=== PATIENT | female | born 1995 | race Caucasian/White ===

== ENCOUNTER 2017-03-21 11:09 | Emergency (ER) | payer OTHER ==
[~2017-03-21] VITALS: Ht 160 cm; Wt 74.1 kg
[2017-03-21 11:11] VITALS: Ht 160 cm; Wt 74.1 kg
[2017-03-21 13:03] LABS: ADD UMIC NO; URINE BILIRUBIN (Dip) NEGATIVE (NEGATIVE); URINE BLOOD (Dip) NEGATIVE (NEGATIVE); URINE COLOR LT. YELLOW (YELLOW); URINE GLUCOSE (Dip) NEGATIVE (NEGATIVE); URINE KETONES (Dip) NEGATIVE (NEGATIVE); URINE LEUKOCYTE ESTERASE (Dip) NEGATIVE (NEGATIVE); URINE NITRITE (Dip) NEGATIVE (NEGATIVE); URINE TOTAL PROTEIN (Dip) NEGATIVE (NEGATIVE); URINE UROBILINOGEN (Dip) 0.2 E.U./dL (0.1-1.0)
[2017-03-21 13:03] LABS: ADD SCAN DIFF NO
[2017-03-21 13:04] LABS: BASOPHILS % 0.3 % (0.0-2.0); EOSINOPHILS # 0.2 10^3/ul (0.0-0.5); EOSINOPHILS % 3.4 % (0.0-7.0); HEMOGLOBIN 11.4 g/dl (12.0-16.0); LYMPHOCYTES # 2.3 10^3/ul (0.8-2.9); LYMPHOCYTES % 32.4 % (15.0-51.0); MEAN CORPUSCULAR HEMOGLOBIN 25.9 pg (29.0-33.0); MEAN CORPUSCULAR HGB CONC 30.8 g/dl (32.0-37.0); MEAN CORPUSCULAR VOLUME 84.1 fl (82.0-101.0); MEAN PLATELET VOLUME 10.3 fl (7.4-10.4); MONOCYTE # 0.4 10^3/ul (0.3-0.9); MONOCYTES % 5.6 % (0.0-11.0); NEUTROPHIL # 4.2 10^3/ul (1.6-7.5); NEUTROPHILS % 58.2 % (39.0-77.0); PLATELET COUNT 313 10^3/UL (140-415); RED CELL DISTRIBUTION WIDTH 13.8 % (11.5-14.5); WHITE BLOOD COUNT 7.1 10^3/ul (4.8-10.8)
[2017-03-21 13:13] LABS: ALBUMIN 4.5 g/dl (3.3-4.9); POTASSIUM 3.7 mmol/L (3.5-5.1)
[2017-03-21 13:15] LABS: CREATININE 0.68 mg/dl (0.44-1.00)
[2017-03-21 13:16] LABS: ALBUMIN/GLOBULIN RATIO 1.18; BILIRUBIN,INDIRECT 0.2 mg/dl (0-1.1); BILIRUBIN,TOTAL 0.2 mg/dl (0.2-1.3); CALCIUM 9.3 mg/dl (8.4-10.2); TOTAL PROTEIN 8.3 g/dl (6.1-8.1)
--- NOTE | 2017-03-21 13:20 | ERD ---
ER Documentation Chief Complaint Date/Time DATE: 03/21/17 Chief Complaint Right upper quadrant abdominal pain HPI The patient is a 21-year-old female who presents to the Emergency Department with complaint of intermittent right upper quadrant abdominal pain for one week. The patient reports that she has been experiencing her "gallstone pain" with increasing frequency over the past week. The pain is localized to the right upper quadrant of her abdomen and radiates to the back. It is aching in nature, and intermittent, often provoked by eating large, heavy meals. In the past, she would take the previously prescribed medications (Tramadol, Ibuprofen and Pepcid) with complete relief of pain. However, she notes that she ran out of her medications approximately 10 days ago, and therefore has not had any medication for relief of her pain. She notes 0/10 pain at this time, with 10/ 10 pain at maximum intensity. Her pain last occurred last night, and therefore she tried to make an appointment with her primary medical provider today, though no appointments were available. Therefore, she presents today. She denies any nausea, vomiting, diarrhea, dysuria, hematuria, flank pain, urinary frequency, urinary urgency, vaginal bleeding or new vaginal discharge. Last menstrual period was 02/08/2017. ROS All systems reviewed and are negative except as per history of present illness. Medications Home Meds Active Scripts Docusate Sodium* (Colace*) 100 Mg Capsule, 100 MG PO TID, #30 CAP Prov:CHLOE MCCLELLAND PA-C 03/21/17 Famotidine* (Pepcid*) 20 Mg Tablet, 20 MG PO BID, #20 TAB Prov:CHLOE MCCLELLAND PA-C 03/21/17 Ibuprofen* (Motrin*) 600 Mg Tab, 600 MG PO Q6, #30 TAB Prov:CHLOE MCCLELLAND PA-C 03/21/17 Tramadol HCl (Tramadol HCl) 50 Mg Tablet, 50 MG PO Q6 Y for PAIN, #15 TAB Prov:CHLOE MCCLELLAND PA-C 03/21/17 Allergies Allergies: Coded Allergies: No Known Allergy (Unverified , 03/21/17) PMhx/Soc Medical and Surgical Hx: pt denies Medical Hx, pt denies Surgical Hx Hx Alcohol Use: No Hx Substance Use: No Hx Tobacco Use: No Physical Exam Vitals Vital Signs Date Time Temp Pulse Resp B/P Pulse Ox O2 Delivery O2 Flow Rate FiO2 03/21/17 11:11 98.0 60 18 124/60 97 Physical Exam GENERAL: Well-developed, well-nourished, female, in no acute distress HEENT: Head is normocephalic, atraumatic. No scleral pallor or icterus. Pupils equal, round and reactive to light. Extraocular movements intact. Conjunctiva pink. Moist mucous membranes. NECK: Supple. No masses, no tenderness, no lymphadenopathy. Trachea midline. RESPIRATORY: Lungs are clear to auscultation bilaterally. Equal breath sounds. Normal expiratory effort. CARDIOVASCULAR: Regular rate and rhythm. S1 and S2 normal. No murmurs, rubs, or gallops. Distal pulses are palpable, 2+ bilaterally. Capillary refill is less than 2 seconds. GASTROINTESTINAL: Abdomen is soft, nontender and nondistended. Negative Pinzon' s sign. No tenderness at McBurney's point. No guarding, no rebound tenderness. Normal bowel sounds. No gross peritonitis. FLANK: No CVA tenderness. EXTREMITIES: No clubbing, cyanosis, or edema. Normal skin perfusion. Moving all extremities. Muscle tone is normal. No focal swelling or erythema. NEUROLOGIC: The patient is alert, awake, and oriented x 3. No focal neurologic deficits. INTEGUMENT: Skin is intact. Warm and dry. PSYCHIATRIC: Cooperative; appropriate. Result Diagram: 03/21/17 1250 03/21/17 1250 Results 24 hrs Laboratory Tests Test 03/21/17 12:40 03/21/17 12:50 Urine Color LT. YELLOW Urine Clarity CLEAR Urine pH 6.0 Urine Specific [place] 1.025 Urine Ketones NEGATIVE Urine Nitrite NEGATIVE Urine Bilirubin NEGATIVE Urine Urobilinogen 0.2 E.U./dL Urine Leukocyte Esterase NEGATIVE Urine Hemoglobin NEGATIVE Urine Glucose NEGATIVE% Urine Total Protein NEGATIVE White Blood Count 7.110^3/ul Red Blood Count 4.4010^6/ul Hemoglobin 11.4g/dl Hematocrit 37.0% Mean Corpuscular Volume 84.1fl Mean Corpuscular Hemoglobin 25.9pg Mean Corpuscular Hemoglobin Concent 30.8g/dl Red Cell Distribution Width 13.8% Platelet Count 93428^3/UL Mean Platelet Volume 10.3fl Neutrophils % 58.2% Lymphocytes % 32.4% Monocytes % 5.6% Eosinophils % 3.4% Basophils % 0.3% Nucleated Red Blood Cells % 0.0/100WBC Neutrophils # 4.210^3/ul Lymphocytes # 2.310^3/ul Monocytes # 0.410^3/ul Eosinophils # 0.210^3/ul Basophils # 0.010^3/ul Nucleated Red Blood Cells # 0.010^3/ul Sodium Level 143mmol/L Potassium Level 3.7mmol/L Chloride Level 105mmol/L Carbon Dioxide Level 26mmol/L Anion Gap 16 Blood Urea Nitrogen 11mg/dl Creatinine 0.68mg/dl Glucose Level 113mg/dl Calcium Level 9.3mg/dl Total Bilirubin 0.2mg/dl Direct Bilirubin 0.00mg/dl Indirect Bilirubin 0.2mg/dl Aspartate Amino Transf (AST/SGOT) 28IU/L Alanine Aminotransferase (ALT/SGPT) 34IU/L Alkaline Phosphatase 87IU/L Total Protein 8.3g/dl Albumin 4.5g/dl Globulin 3.80g/dl Albumin/Globulin Ratio 1.18 Lipase 137U/L Procedures/MDM Diagnostic Tests and Interpretation: PROCEDURE: Right Upper Quadrant Ultrasound. CLINICAL INDICATION: Abdominal Pain TECHNIQUE: Multiple real-time images were acquired of the patient's right upper quadrant abdomen and retroperitoneum utilizing a high resolution transducer. COMPARISON: None FINDINGS: The liver measures 14.1 cm, and demonstrates moderately increased echogenicity. The main portal vein is patent with proper directional flow. There is no intrahepatic biliary ductal dilatation. The extrahepatic common bile duct measures 3 mm. There is cholelithiasis. There is mild nonspecific gallbladder wall thickening to 4 mm which may at least in part be due to underdistension. There is no pericholecystic fluid. The visualized pancreas is unremarkable. The right kidney measures 9.7 x 4.1 x 5.4 cm and demonstrates normal echotexture. There is no right renal calculus or hydronephrosis. The visualized abdominal aorta and IVC are grossly unremarkable. IMPRESSION: Moderate fatty infiltration of the liver. There is cholelithiasis. There is mild nonspecific gallbladder wall thickening which may at least in part be due to underdistension without pericholecystic fluid. Acute cholecystitis is considered unlikely although clinical correlation is recommended. Normal CBD. Physician Fernanda Date Time Electronically viewed and signed by José Miguel Stinson Physician on 03/21/2017 13:41 Imaging findings discussed with Dr. Maritnez, who recommends that the patient be discharged home, as she is experiencing no current pain at this time, negative Pinzon's sign, no leukocytosis, normal bilirubin, and no transaminitis. Medical Decision Making: This is a 21-year-old female presenting to the Emergency Department with complaint of right upper quadrant abdominal pain. On physical examination, the patient's abdomen was soft throughout, with no tenderness to palpation, no distention, no guarding, no gross peritonitis. Differential diagnosis includes, but is not limited to, gastroenteritis, gastritis, cholecystitis, cholangitis, choledocholithiasis, pancreatitis, perforated viscus, mesenteric ischemia, GERD, PUD, urinary tract infection, acute coronary syndrome, peptic ulcer disease, pyelonephritis, pneumonia, hepatitis, infectious diarrhea, IBD, aortic dissection, torsion, bowel obstruction, appendicitis, diverticulitis. Laboratory analysis with no leukocytosis. No elevated bilirubin or transaminitis. Lipase is normal. Urinalysis with no nitrites, no urine leukocyte esterace, no evidence for urinary tract infection. Ultrasound of the right upper quadrant revealed cholelithiasis with nonspecific gallbladder wall thickening. However, no pericholecystic fluid noted, no additional findings to suggest acute cholecystitis. Otherwise, no evidence of acute cholangitis, choledocholithiasis or gallstone pancreatitis. After rest, the patient reports no new complaints and no pain. Upon review and interpretation of the patient's presentation and overall ER course, I believe the patient's symptoms are most consistent with right upper quadrant abdominal pain, likely secondary to biliary colic/cholelithiasis without cholecystitis. Doubt acute coronary syndrome - symptoms and examination inconsistent. Doubt pancreatitis - clinical presentation inconsistent, lipase normal. Doubt perforated ulcer, patient has a non-surgical abdomen. Doubt small bowel obstruction, patient is passing flatus, abdomen is non-distended. Doubt appendicitis, patient has no McBurney's point tenderness, no guarding, non- surgical abdomen, no tenderness over the RLQ. Doubt diverticulitis, exam inconsistent. Doubt ischemic bowel, no pain out of proportion to examination. Doubt torsion, symptoms and examination inconsistent. At this time, the patient is in stable condition and therefore can be discharged home with prescriptions for Ibuprofen, Pepcid (per patient's request) , Tramadol and Colace, and strict return precautions for signs of deteriorating or worsening condition. She is advised to follow up with her primary care provider in 2-3 days for reevaluation and further management, or return to the ER sooner if symptoms worsen. I shared my medical decision making, plan, as well as the results with the patient at length and in great detail, and she verbally understands and agrees with the plan for further observation and care as an outpatient. At the time of discharge, all questions were answered. Departure Diagnosis: Primary Impression: Biliary colic Additional Impressions: Cholelithiasis without cholecystitis Right upper quadrant abdominal pain Condition: Stable Patient Instructions: Biliary Colic With Gallstone (Confirmed), Coping with Colic, Gallstones Additional Instructions: Call your primary care doctor TOMORROW for an appointment during the next 2-3 days.See the doctor sooner or return here if your condition worsens before your appointment time. CHLOE MCCLELLAND PA-C Mar 21, 2017 13:20
--- NOTE | 2017-03-21 13:42 | RADRPT ---
PROCEDURE: Right Upper Quadrant Ultrasound. CLINICAL INDICATION: Abdominal Pain TECHNIQUE: Multiple real-time images were acquired of the patient's right upper quadrant abdomen a nd retroperitoneum utilizing a high resolution transducer. COMPARISON: None FINDINGS: The liver measures 14.1 cm, and demonstrates moderately increased echogenicity. The main portal vein is patent with proper directional flow. There is no intrahepatic biliary ductal dilatation. The ext rahepatic common bile duct measures 3 mm. There is cholelithiasis. There is mild nonspecific gallbladder wall thickening to 4 mm which may at least in part be due to underdistension. There is no pericholecystic fluid. The visualized pancreas is unremarkable. The right kidney measures 9.7 x 4.1 x 5.4 cm and demonstrates normal echotexture. There is no right renal calculus or hydronephrosis. The visualized abdominal aorta and IVC are grossly unremarkable. IMPRESSION: Moderate fatty infiltration of the liver. There is cholelithiasis. There is mild nonspecific gallbladder wall thickening which may at least i n part be due to underdistension without pericholecystic fluid. Acute cholecystitis is considered u nlikely although clinical correlation is recommended. Normal CBD. RPTAT: EE Physician Fernanda Date Time Electronically viewed and signed by Physician Fernanda on 03/21/2017 13:41 /
[2017-03-21] MEDS ORDERED: IBUP-1542 PO (13:46)
[2017-03-21] MEDS ORDERED: TRAM50TA2 PO (13:46)
[2017-03-21] MEDS ORDERED: FAMO-18 PO (13:47)
[2017-03-21] MEDS ORDERED: DOCU-144 PO (13:48)
== END 2017-03-21 14:02 | disposition home or self-care (01) ==
LOC: FTE 11:09
DX: K80.70 Calculus of gallbladder and bile duct without cholecystitis without obstruction (principal)
CPT/HCPCS: 36415; 76705; 80053; 81003; 83690; 85025; Z7502

== ENCOUNTER 2017-10-20 03:49 | Emergency (ER) | payer OTHER ==
[~2017-10-20] VITALS: Ht 160 cm; Wt 75.6 kg
[~2017-10-20 03:49] MED LIST: DOCU-144 PO; FAMO-96 PO; IBUP-1542 PO; TRAM50TA2 PO
[2017-10-20 04:04] VITALS: Ht 160 cm; Wt 75.6 kg
[2017-10-20] MEDS ORDERED: KETOROLAC 30 MG INJ IV STA (04:27)
[2017-10-20] MEDS ORDERED: ONDANSETRON 4 MG INJ IV STA (04:27)
[2017-10-20 05:09] LABS: BASOPHILS % 0.2 % (0.0-2.0); EOSINOPHILS # 0.1 10^3/ul (0.0-0.5); EOSINOPHILS % 0.5 % (0.0-7.0); HEMATOCRIT 37.1 % (37.0-47.0); HEMOGLOBIN 11.6 g/dl (12.0-16.0); LYMPHOCYTES # 1.2 10^3/ul (0.8-2.9); LYMPHOCYTES % 13.3 % (15.0-51.0); MEAN CORPUSCULAR HEMOGLOBIN 25.9 pg (29.0-33.0); MEAN CORPUSCULAR HGB CONC 31.3 g/dl (32.0-37.0); MEAN CORPUSCULAR VOLUME 82.8 fl (82.0-101.0); MEAN PLATELET VOLUME 10.5 fl (7.4-10.4); MONOCYTE # 0.4 10^3/ul (0.3-0.9); MONOCYTES % 3.8 % (0.0-11.0); NEUTROPHIL # 7.6 10^3/ul (1.6-7.5); PLATELET COUNT 288 10^3/UL (140-415); RED BLOOD COUNT 4.48 10^6/ul (4.20-5.40); RED CELL DISTRIBUTION WIDTH 13.5 % (11.5-14.5); WHITE BLOOD COUNT 9.3 10^3/ul (4.8-10.8)
[2017-10-20 05:32] LABS: ALBUMIN 4.3 g/dl (3.3-4.9); ALBUMIN/GLOBULIN RATIO 1.19; BILIRUBIN,INDIRECT 0.1 mg/dl (0-1.1); BILIRUBIN,TOTAL 0.1 mg/dl (0.2-1.3); CALCIUM 9.1 mg/dl (8.4-10.2); CREATININE 0.78 mg/dl (0.44-1.00); POTASSIUM 3.9 mmol/L (3.5-5.1); TOTAL PROTEIN 7.9 g/dl (6.1-8.1)
--- NOTE | 2017-10-20 05:50 | RADRPT ---
PROCEDURE: CT Abdomen and pelvis without contrast. CLINICAL INDICATION: Abdominal pain. TECHNIQUE: CT scan of the abdomen and pelvis was performed on a multi-detector high-resolution CT scanner. Contiguous axial images were obtained from the lung bases to the ischial tuberosities wit hout intravenous contrast. Coronal and sagittal reformatted images were also obtained. Images were reviewed on the PACS workstation. DICOM images are available. One or more of the following dose reduction techniques were used: - Automated exposure control. - Adjustment of the mA and/or kV according to patient size. - Use of iterative reconstruction technique. Exam CTD/vol = 12.35 mGy. Total exam DLP = 701.75 mGy-cm. COMPARISON: None. FINDINGS: Evaluation of the lung bases demonstrates no pleural or parenchymal disease. Abdomen: The liver is normal in size. There is no focal mass or dilatation of the biliary tree. T he gallbladder is not distended. Multiple radiolucent gallstones are present. There is mild gallblad linwood wall thickening. The spleen, pancreas and bilateral adrenal glands are within normal limits. Bi lateral kidneys are normal in size with no contour deforming mass identified. There is mild right re nal cortical scarring. There is no radiopaque renal or ureteral calculus identified. There is no h ydronephrosis or hydroureter. There is no retroperitoneal adenopathy. The abdominal aorta is of no rmal caliber. There is no abnormal bowel wall thickening or distension. There is no bowel obstruction or free air . A normal appendix is identified. There is no diverticulosis or diverticulitis. There is no asci rosi. Pelvis: The bladder demonstrates mild wall thickening. The uterus and adnexa are within normal kurtz its. There is mild pelvic free fluid. There is no significant pelvic adenopathy. Evaluation of the osseous structures demonstrates no suspicious lytic or blastic lesion. IMPRESSION: Cholelithiasis with mild gallbladder wall thickening. Mild bladder wall thickening could suggest cystitis. Clinical correlation is needed. Mild pelvic free fluid. Mild right renal cortical scarring. Normal appendix. .Khalif Angulo MD, Date Time Electronically viewed and signed by .Khalif Angulo MD, MD on 10/20/2017 05:50 .T/
--- NOTE | 2017-10-20 05:52 | RADRPT ---
PROCEDURE: Abdominal ultrasound, limited. CLINICAL INDICATION: Abdominal pain. TECHNIQUE: Multiple real-time images were acquired of the patient's right upper abdomen utilizing a high resolution transducer. COMPARISON: 03/21/2017. FINDINGS: The liver demonstrates increased echogenicity and size measuring 16.9 cm. There is no focal mass or intrahepatic biliary ductal dilatation. The portal vein is patent. The gallbladder is not distend ed. Multiple echogenic gallstones are identified. There is focal tenderness over the gallbladder. T here is no pericholecystic fluid. There is mild gallbladder wall thickening measuring 3.5 mm. The c ommon bile duct measures 2.5 mm in maximal dimension. The pancreas is obscured by overlying bowel g as. No free fluid is identified. The right kidney is normal size and echogenicity measuring 10.1 cm. There is no focal renal mass or echogenic calculus identified. There is no obstructive uropathy. IMPRESSION: Cholelithiasis with mild gallbladder wall thickening and positive sonographic Pinzon's sign. Fatty infiltration of the liver. Pancreas obscured by overlying bowel gas. .Khalif Angulo MD, MD Date Time Electronically viewed and signed by .Khalif Angulo MD, MD on 10/20/2017 05:51 .T/
[2017-10-20] MEDS ORDERED: IBUP-1542 PO (06:03)
[2017-10-20 06:05] LABS: ADD UMIC YES; UR ASCORBIC ACID NEGATIVE (NEGATIVE); UR BACTERIA MODERATE /HPF (NONE SEEN); UR BILIRUBIN (Dip) NEGATIVE (NEGATIVE); UR BLOOD (Dip) 1+ mg/dL (NEGATIVE); UR CLARITY CLOUDY (CLEAR); UR COLOR YELLOW (YELLOW); UR GLUCOSE (Dip) NEGATIVE (NEGATIVE); UR KETONES (Dip) NEGATIVE (NEGATIVE); UR LEUKOCYTE ESTERASE (Dip) 1+ Leu/ul (NEGATIVE); UR MUCUS MODERATE /HPF (NONE SEEN); UR NITRITE (Dip) NEGATIVE (NEGATIVE); UR RBC 35 /HPF (0-5); UR SPECIFIC GRAVITY (Dip) 1.019 (1.003-1.030); UR SQUAMOUS EPITHELIAL CELL FEW /HPF (FEW); UR TOTAL PROTEIN (Dip) 1+ mg/dl (NEGATIVE); UR UROBILINOGEN (Dip) NEGATIVE (NEGATIVE)
[2017-10-20] MEDS ORDERED: NITR-58 PO (06:11)
[2017-10-20] MEDS ORDERED: ONDA4TAB14 PO (06:12)
[2017-10-20] MEDS ORDERED: HYDR-906 PO (06:12)
--- NOTE | 2017-10-20 06:27 | ERD ---
ER Documentation Chief Complaint Chief Complaint RUQ w/suprapubic pressure just now HPI Patient is a 22-year-old female with a past medical history of cholelithiasis who presents to the ED for concerns of right-sided flank pain radiating up into her right upper quadrant as well as suprapubic tenderness and dysuria. Patient states her symptoms started 2 hours prior to her arrival. She states she has "gallbladder pain". Patient states that the pain is constant, throbbing in nature. Patient denies any fevers or chills. Patient minutes to nausea and vomiting 3, nonbloody nonbilious. Also admits to dysuria. She denies any hematuria. Patien denies any diarrhea, chest pain, shortness of breath, or extremity pain or loss consciousness. Patient denies any previous abdominal surgeries. ROS All systems reviewed and are negative except as per history of present illness. Medications Home Meds Active Scripts Ondansetron (Ondansetron Odt) 4 Mg Tab.rapdis, 4 MG PO Q6H Y for NAUSEA AND/OR VOMITING, #10 TAB Prov:MARILEE DEL REAL PA-C 10/20/17 Hydrocodone/Acetaminophen ([place] 5-325 Tablet) 1 Each Tablet, 1 TAB PO Q6H Y for PAIN, #7 TAB Prov:MARILEE DEL REAL PA-C 10/20/17 Nitrofurantoin Monohyd Macrocr* (Macrobid*) 100 Mg Capsr, 100 MG PO BID for 5 Days, CAP Prov:MARILEE DEL REAL PA-C 10/20/17 Ibuprofen* (Motrin*) 600 Mg Tab, 600 MG PO Q6, #30 TAB Prov:MARILEE DEL REAL PA-C 10/20/17 Docusate Sodium* (Colace*) 100 Mg Capsule, 100 MG PO TID, #30 CAP Prov:CHLOE MCCLELLAND PA-C 03/21/17 Famotidine* (Pepcid*) 20 Mg Tablet, 20 MG PO BID, #20 TAB Prov:CHLOE MCCLELLAND PA-C 03/21/17 Ibuprofen* (Motrin*) 600 Mg Tab, 600 MG PO Q6, #30 TAB Prov:CHLOE MCCLELLAND PA-C 03/21/17 Tramadol HCl (Tramadol HCl) 50 Mg Tablet, 50 MG PO Q6 Y for PAIN, #15 TAB Prov:CHLOE MCCLELLAND PA-C 03/21/17 Allergies Allergies: Coded Allergies: No Known Allergy (Unverified , 03/21/17) PMhx/Soc Medical and Surgical Hx: pt denies Surgical Hx Hx Miscellaneous Medical Probl: Yes (UTI) Hx Alcohol Use: No Hx Substance Use: No Hx Tobacco Use: No Smoking Status: Never smoker Physical Exam Vitals Vital Signs Date Time Temp Pulse Resp B/P Pulse Ox O2 Delivery O2 Flow Rate FiO2 10/20/17 04:04 98.6 60 18 130/64 98 Physical Exam GENERAL: Well-developed, well-nourished female. Appears in no acute distress. HEAD: Normocephalic, atraumatic. EYES: Pupils are equally reactive bilaterally. EOMs grossly intact. No conjunctival erythema. ENT: Moist mucous membranes. No uvula deviation. No kissing tonsils. NECK: Supple. No meningismus. Normal range of motion of the neck. LUNG: Clear to auscultation bilaterally. No rhonchi, wheezing, rales or coarse breath sounds. HEART: Regular rate and rhythm. No murmurs, rubs or gallops. ABDOMEN: Soft, and nondistended. Tender to palpation in the right upper quadrant. Positive Pinzon sign. Positive bowel sounds in all four quadrants. No rebound tenderness, no guarding. (-) McBurney's point tenderness. No CVA tenderness. EXTREMITIES: Equal pulses bilaterally. No peripheral clubbing, cyanosis or edema. No unilateral leg swelling. NEUROLOGIC: Alert and oriented. Moving all four extremities without any difficulty. Normal speech. Steady gait. SKIN: Normal color. Warm and dry. No rashes or lesions. Result Diagram: 10/20/170 10/20/17 0450 Results 24 hrs Laboratory Tests Test 10/20/17 04:50 White Blood Count 9.310^3/ul Red Blood Count 4.4810^6/ul Hemoglobin 11.6g/dl Hematocrit 37.1% Mean Corpuscular Volume 82.8fl Mean Corpuscular Hemoglobin 25.9pg Mean Corpuscular Hemoglobin Concent 31.3g/dl Red Cell Distribution Width 13.5% Platelet Count 15598^3/UL Mean Platelet Volume 10.5fl Neutrophils % 82.0% Lymphocytes % 13.3% Monocytes % 3.8% Eosinophils % 0.5% Basophils % 0.2% Nucleated Red Blood Cells % 0.0/100WBC Neutrophils # 7.610^3/ul Lymphocytes # 1.210^3/ul Monocytes # 0.410^3/ul Eosinophils # 0.110^3/ul Basophils # 0.010^3/ul Nucleated Red Blood Cells # 0.010^3/ul Urine Color YELLOW Urine Clarity CLOUDY Urine pH 7.0 Urine Specific [place] 1.019 Urine Ketones NEGATIVEmg/dL Urine Nitrite NEGATIVEmg/dL Urine Bilirubin NEGATIVEmg/dL Urine Urobilinogen NEGATIVEmg/dL Urine Leukocyte Esterase 1+Khushi/ul Urine Microscopic RBC 35/HPF Urine Microscopic WBC 97/HPF Urine Squamous Epithelial Cells FEW/HPF Urine Bacteria MODERATE/HPF Urine Mucus MODERATE/HPF Urine Hemoglobin 1+mg/dL Urine Glucose NEGATIVEmg/dL Urine Total Protein 1+mg/dl Sodium Level 143mmol/L Potassium Level 3.9mmol/L Chloride Level 104mmol/L Carbon Dioxide Level 27mmol/L Anion Gap 16 Blood Urea Nitrogen 11mg/dl Creatinine 0.78mg/dl Glucose Level 139mg/dl Calcium Level 9.1mg/dl Total Bilirubin 0.1mg/dl Direct Bilirubin 0.00mg/dl Indirect Bilirubin 0.1mg/dl Aspartate Amino Transf (AST/SGOT) 20IU/L Alanine Aminotransferase (ALT/SGPT) 34IU/L Alkaline Phosphatase 109IU/L Total Protein 7.9g/dl Albumin 4.3g/dl Globulin 3.60g/dl Albumin/Globulin Ratio 1.19 Lipase 151U/L Current Medications Medications (Trade) Dose Ordered Sig/Almaz Route PRN Reason Start Time Stop Time Status Last Admin Dose Admin Ondansetron HCl (Zofran Inj) 4 mg ONCE STAT IV 10/20/17 04:27 10/20/17 04:28 DC 10/20/17 04:56 Ketorolac Tromethamine (Toradol) 30 mg ONCE STAT IV 10/20/17 04:27 10/20/17 04:28 DC 10/20/17 04:56 Procedures/MDM ED COURSE: The patient was stable throughout ED course. I kept the patient and/or family informed of laboratory and diagnostic imaging results throughout the ED course. DIAGNOSTIC IMAGING: Read by radiologist. Patient: ADONAY SCHAEFER : 1995 Age: 22 Sex: F MR #: [id number] DOS: 10/20/17426 Ordering MD: MARILEE DEL REAL PA-C Location: [facility] Room/Bed: PROCEDURE: Abdominal ultrasound, limited. CLINICAL INDICATION: Abdominal pain. TECHNIQUE: Multiple real-time images were acquired of the patient's right upper abdomen utilizing a high resolution transducer. COMPARISON: 03/21/2017. FINDINGS: The liver demonstrates increased echogenicity and size measuring 16.9 cm. There is no focal mass or intrahepatic biliary ductal dilatation. The portal vein is patent. The gallbladder is not distended. Multiple echogenic gallstones are identified. There is focal tenderness over the gallbladder. There is no pericholecystic fluid. There is mild gallbladder wall thickening measuring 3.5 mm. The common bile duct measures 2.5 mm in maximal dimension. The pancreas is obscured by overlying bowel gas. No free fluid is identified. The right kidney is normal size and echogenicity measuring 10.1 cm. There is no focal renal mass or echogenic calculus identified. There is no obstructive uropathy. IMPRESSION: Cholelithiasis with mild gallbladder wall thickening and positive sonographic Pinzon's sign. Fatty infiltration of the liver. Pancreas obscured by overlying bowel gas. .Khalif Angulo MD, MD Date Time Electronically viewed and signed by .Khalif Angulo MD, MD on 10/20/2017 05:51 .T/ CC: MARILEE DEL REAL PA-C Patient: ADONAY SCHAEFER : 1995 Age: 22 Sex: F MR #: [id number] DOS: 10/20/17426 Ordering MD: MARILEE DEL REAL PA-C Location: [facility] Room/Bed: PROCEDURE: CT Abdomen and pelvis without contrast. CLINICAL INDICATION: Abdominal pain. TECHNIQUE: CT scan of the abdomen and pelvis was performed on a multi- detector high-resolution CT scanner. Contiguous axial images were obtained from the lung bases to the ischial tuberosities without intravenous contrast. Coronal and sagittal reformatted images were also obtained. Images were reviewed on the PACS workstation. DICOM images are available. One or more of the following dose reduction techniques were used: - Automated exposure control. - Adjustment of the mA and/or kV according to patient size. - Use of iterative reconstruction technique. Exam CTD/vol = 12.35 mGy. Total exam DLP = 701.75 mGy-cm. COMPARISON: None. FINDINGS: Evaluation of the lung bases demonstrates no pleural or parenchymal disease. Abdomen: The liver is normal in size. There is no focal mass or dilatation of the biliary tree. The gallbladder is not distended. Multiple radiolucent gallstones are present. There is mild gallbladder wall thickening. The spleen, pancreas and bilateral adrenal glands are within normal limits. Bilateral kidneys are normal in size with no contour deforming mass identified. There is mild right renal cortical scarring. There is no radiopaque renal or ureteral calculus identified. There is no hydronephrosis or hydroureter. There is no retroperitoneal adenopathy. The abdominal aorta is of normal caliber. There is no abnormal bowel wall thickening or distension. There is no bowel obstruction or free air. A normal appendix is identified. There is no diverticulosis or diverticulitis. There is no ascites. Pelvis: The bladder demonstrates mild wall thickening. The uterus and adnexa are within normal limits. There is mild pelvic free fluid. There is no significant pelvic adenopathy. Evaluation of the osseous structures demonstrates no suspicious lytic or blastic lesion. IMPRESSION: Cholelithiasis with mild gallbladder wall thickening. Mild bladder wall thickening could suggest cystitis. Clinical correlation is needed. Mild pelvic free fluid. Mild right renal cortical scarring. Normal appendix. .Khalif Angulo MD, MD Date Time Electronically viewed and signed by .Khalif Angulo MD, MD on 10/20/2017 05:50 .T/ CC: MARILEE DEL REAL PA-C PROCEDURES: None. MEDICATIONS GIVEN: Toradol, Zofran Patient tolerated medication well with no adverse reactions. MEDICAL DECISION MAKING: This is a 22-year-old female who presents to the ED for concerns of right upper quadrant pain 2 hours. Patient denies any fevers or chills. Patient did admit to nausea and vomiting. Vital signs were reviewed. Patient is afebrile. CBC showed no evidence of systemic infection or severe anemia. CMP showed no evidence of electrolyte abnormalities, severe acidosis, alkalosis, renal failure , or liver disease. Lipase showed no evidence of acute pancreatitis. UA did show 1+ leukocyte esterase, positive WBCs and positive RBCs. Urine test was negative. CT abdomen and pelvis showed Cholelithiasis with mild gallbladder wall thickening. Mild bladder wall thickening could suggest cystitis. Clinical correlation is needed. Mild pelvic free fluid. Mild right renal cortical scarring. Normal appendix. Gallbladder ultrasound showed Cholelithiasis with mild gallbladder wall thickening and positive sonographic Pinzon's sign. Fatty infiltration of the liver. Pancreas obscured by overlying bowel gas. I discussed this case with my supervising physician Dr. Olguin, who also examined the patient reviewed all her laboratory studies and imaging studies. At this time, he does not feel that patient requires admission for emergent cholecystectomy or antibiotics. Patient was advised that she will need to have her gallbladder taken out on an outpatient basis. Referral information was provided. At this time, patient's presentation is most consistent with cholelithiasis with gallbladder wall thickening and UTI vs early pyelonephritis. Low suspicion for appendicitis, bowel obstruction, bowel perforation, DKA, bowel perforation, acute cholecystitis, choledocholithiasis, pancreatitis, diverticulitis, pyelonephritis, nephrolithiasis. PRESCRIPTIONS: Ibuprofen, [place], Macrobid, Zofran DISCHARGE: At this time, patient is stable for discharge and outpatient management. Patient was given a copy of all imaging studies and blood work obtained today. Patient advised to follow-up with the surgeon on an outpatient basis. Referral information provided. I have instructed the patient to follow-up with his/her primary care physician in 1-2 days. I have instructed the patient to promptly return to the ER at any time for any new or worsening symptoms including increased pain, nausea, vomiting, diarrhea, fever, weakness or LOC. The patient and/or family expressed understanding of and agreement with this plan. All questions were answered. Home care instructions were provided. Disclaimer: Inadvertent spelling and grammatical errors are likely due to EHR/ dictation software use and do not reflect on the overall quality of patient care. Also, please note that the electronic time recorded on this note does not necessarily reflect the actual time of the patient encounter. Departure Diagnosis: Primary Impression: Thickening of wall of gallbladder Additional Impressions: Cholelithiasis Cholelithiasis location: gallbladder Cholecystitis presence: without cholecystitis Biliary obstruction: without biliary obstruction Qualified Code : K80.20 - Calculus of gallbladder without cholecystitis without obstruction UTI (urinary tract infection) Urinary tract infection type: site unspecified Hematuria presence: with hematuria Qualified Code: N39.0 - Urinary tract infection with hematuria, site unspecified Condition: Stable Patient Instructions: Understanding Urinary Tract Infections (UTIs), Gallstones Referrals: James TREVIZO KEITH MD DEL JUNCO, TIRSO MD FARID,JONE RAMÍREZ MD, M.D., SAID MD KOSARI, KAMBIZ M.D. [facility] YOU HAVE RECEIVED A MEDICAL SCREENING EXAM AND THE RESULTS INDICATE THAT YOU DO NOT HAVE A CONDITION THAT REQUIRES URGENT TREATMENT IN THE EMERGENCY DEPARTMENT. FURTHER EVALUATION AND TREATMENT OF YOUR CONDITION CAN WAIT UNTIL YOU ARE SEEN IN YOUR DOCTORS OFFICE WITHIN THE NEXT 1-2 DAYS. IT IS YOUR RESPONSIBILITY TO MAKE AN APPOINTMENT FOR FOLOW-UP CARE. IF YOU HAVE A PRIMARY DOCTOR --you should call your primary doctor and schedule an appointment IF YOU DO NOT HAVE A PRIMARY DOCTOR YOU CAN CALL OUR PHYSICIAN REFERRAL HOTLINE AT IF YOU CAN NOT AFFORD TO SEE A PHYSICIAN YOU CAN CHOSE FROM THE FOLLOWING [facility] CLINICS [facility] [address] [facility] [address] [facility] [address] [facility] [address] [facility] [address] [facility] [facility]. [address] [facility]. [facility] YOU HAVE RECEIVED A MEDICAL SCREENING EXAM AND THE RESULTS INDICATE THAT YOU DO NOT HAVE A CONDITION THAT REQUIRES URGENT TREATMENT IN THE EMERGENCY DEPARTMENT. FURTHER EVALUATION AND TREATMENT OF YOUR CONDITION CAN WAIT UNTIL YOU ARE SEEN IN YOUR DOCTORS OFFICE WITHIN THE NEXT 1-2 DAYS. IT IS YOUR RESPONSIBILITY TO MAKE AN APPOINTMENT FOR FOLOW-UP CARE. IF YOU HAVE A PRIMARY DOCTOR --you should call your primary doctor and schedule and appointment IF YOU DO NOT HAVE A PRIMARY DOCTOR YOU CAN CALL OUR PHYSICIAN REFERRAL HOTLINE AT . IF YOU CAN NOT AFFORD TO SEE A PHYSICIAN YOU CAN CHOSE FROM THE FOLLOWING [facility] INSTITUTIONS: [facility] [address] [place] [address] [facility] [address] [place] [address] [facility] [address] [place] [address] Additional Instructions: Call your primary care doctor TOMORROW for an appointment during the next 1-2 days.See the doctor sooner or return here if your condition worsens before your appointment time. Follow-up with the general surgeon for further management of your cholelithiasis. You may need to have your gallbladder taken out on an outpatient basis. MARILEE DEL REAL PA-C Oct 20, 2017 06:27
== END 2017-10-20 06:23 | disposition home or self-care (01) ==
LOC: FTE 03:49
DX: K80.20 Calculus of gallbladder without cholecystitis without obstruction (principal); N39.0 Urinary tract infection, site not specified
CPT/HCPCS: 36415; 74176; 76705; 80053; 81001; 83690; 85025; 96374; 96375; J1885; J2405; Z7502

== ENCOUNTER 2018-01-25 03:08 | Emergency (ER) | END 2018-01-25 06:05 | disposition home or self-care (01) ==

== ENCOUNTER 2018-07-06 06:11 | Inpatient (IN) | END 2018-07-07 12:46 | disposition home or self-care (01) | DRG 780 ==

== ENCOUNTER 2018-08-20 15:30 | Inpatient (IN) | END 2018-08-24 13:00 | disposition home or self-care (01) | DRG 775 ==